=== PATIENT | female | born 1940 | race Caucasian/White ===

== ENCOUNTER 2019-07-24 10:36 | Emergency (ER) | payer MEDICARE ==
[2019-07-24] MEDS ORDERED: ONDANSETRON HCL INJ/PF 4 MG/2 ML SDV IV ONE ×2 (10:50→11:18)
--- NOTE | 2019-07-24 10:56 | ER Document Report ---
ED General - General Stated Complaint: Possible seizure Time Seen by Provider: 07/24/19 10:47 Primary Care Provider: TAQUERIA JAMESON PA [Primary Care Provider] - Follow up as needed Notes: 79-year-old woman brought into the emergency department by EMS. Apparently family heard a unusual noise in the adjacent room went and found her poorly res ponsive and apparently had fallen sustaining abrasion to the side of her face. Was question of a possible seizure, she is nonverbal on unresponsive to verbal stimuli. There is no known history of seizures, she has a past medical history of hypertension, anxiety, urinary incontinence, and atrial fibrillation. Apparently she was sitting in a recliner, family member noticed her shaking prior to EMS being called. EMS came and found her with a altered mental status and poorly responsive to verbal stimuli. In the emergency department she has had several episodes of vomiting, watery gastric content, no blood noted. Patient is able to respond to answering questions, able to tell me her name and moves all 4 extremities spontaneously. - Related Data Allergies/Adverse Reactions: No Known Allergies Allergy (Unverified 07/24/19 12:00) Past Medical History - Social History Smoking Status: Unknown if Ever Smoked Family History: Reviewed & Not Pertinent Review of Systems - Review of Systems Notes: Constitutional: Negative for fever. HENT: Negative for sore throat. Eyes: Negative for visual changes. Cardiovascular: Negative for chest pain. Respiratory: Negative for shortness of breath. Gastrointestinal: + Vomiting episodes Genitourinary: Negative for dysuria. Musculoskeletal: Negative for back pain. Skin: Negative for rash. Neurological: + Altered mental status, + shaking episode 10 point ROS negative except as marked above and in HPI. Physical Exam - Vital signs Vitals: BP Pulse Ox 162/91 H 96 07/24/19 10:46 07/24/19 10:46 - Notes Notes: PHYSICAL EXAMINATION: Physical Exam: General: Well-nourished, well-developed, 79-year-old woman mildly restless secondary to vomiting episodes. HEENT: NC/AT, pupils equal round and reactive to light, MM moist,nares clear, oropharynx clear, airway patent Neck: supple, no adenopathy, no masses. Good range of motion Lungs: clear, no wheezing, no rales no rhonchi CVS: Regular rate and rhythm no murmur gallop or rub Abdomen: Soft, active, nontender, no masses, no hepatosplenomegaly Ext: No edema, clubbing or cyanosis. Neuro: Alert and responsive, moving all 4 extremities on command, cranial nerves intact, no focal findings Skin: Intact no open lesions, no rash PSYCH: Normal mood, normal affect. Course - Re-evaluation Re-evalutation: 07/24/19 13:07 I discussed the patient with the hospitalist, , he notes that we have no neurology services and no ability to get an EEG before Thursday of next week. I have contacted [facility] and Dr. James has agreed to accept the patient in transfer. - Vital Signs Vital signs: Temp Pulse Resp BP Pulse Ox 98.6 F 56 L 20 143/81 H 98 07/24/19 14:33 07/24/19 11:10 07/24/19 15:01 07/24/19 15:01 07/24/19 15:01 - Laboratory Result Diagrams: 07/24/19 10:00 07/24/19 10:00 Laboratory results interpreted by me: 07/24/19 07/24/19 07/24/19 10:00 10:00 10:00 Hgb 11.8 L MCH 26.2 L RDW 16.5 H Carbonic Acid ABG pCO2 ABG pO2 ABG O2 Saturation Glucose 130 H POC Glucose AST 62 H NT-Pro-B Natriuret Pep 3300 H Urine Protein Urine Blood Urine Urobilinogen 07/24/19 07/24/19 07/24/19 11:12 11:19 11:30 Hgb MCH RDW Carbonic Acid 0.99 L ABG pCO2 32.8 L ABG pO2 61.5 L ABG O2 Saturation 92.7 L Glucose POC Glucose 127 H AST NT-Pro-B Natriuret Pep Urine Protein 100 H Urine Blood SMALL H Urine Urobilinogen 2.0 H I have reviewed laboratory data and used this information for the treatment decisions regarding the patient. - Diagnostic Test Radiology reviewed: Image reviewed, Reports reviewed - Chest x-ray with cardiomegaly, no CHF CT head noncontrast: Chronic intracranial changes with small vessel disease chronic appearing paranasal sinus disease CT the abdomen and pelvis with IV contrast large hiatal hernia with the majority of the stomach sitting in the hiatal hernia, colitis involving the ascending and transverse colon with thickening in the mucosal wall diffusely, infectious versus inflammatory. - EKG Interpretation by [place] EKG shows normal: Sinus rhythm - Sinus rhythm, rate of 63, probable left atrial abnormality, borderline prolonged QT interval, no acute ST-T wave abnormalities noted. Critical Care Note - Critical Care Note Total time excluding time spent on procedures (mins): 60 - Critical care time spent obtaining history from patient or surrogate, discussions with consultants, development of treatment plan with patient or surrogate, evaluation of patient's response to treatment, examination of patient, ordering and performing treatments and interventions, ordering and review of laboratory studies, re-evaluation of patient's condition, ordering and review of radiographic studies and review of old charts Discharge - Discharge Clinical Impression: Episode of shaking, Cardiomegaly, History of atrial fibrillation, Large hiatal hernia, Colitis Altered mental status Qualifiers: Altered mental status type: unspecified Qualified Code(s): R41.82 - Altered mental status, unspecified Hypertension Qualifiers: Hypertension type: unspecified Qualified Code(s): I10 - Essential (primary) hypertension Vomiting Qualifiers: Vomiting type: unspecified Vomiting Intractability: unspecified Nausea presence: unspecified Qualified Code(s): R11.10 - Vomiting, unspecified Condition: Good Disposition: [facility] Referrals: TAQUERIA JAMESON PA [Primary Care Provider] - Follow up as needed
[2019-07-24 10:57] LABS: ABSOLUTE BASOPHILS # (AUTO) 0.1 10^3/uL (0.0-0.2); ABSOLUTE EOSINOPHILS # (AUTO) 0.2 10^3/uL (0.0-0.6); ABSOLUTE LYMPHOCYTES (AUTO) 2.6 10^3/uL (0.5-4.7); ABSOLUTE MONOCYTES (AUTO) 0.7 10^3/uL (0.1-1.4); ABSOLUTE NEUT (AUTO) 4.3 10^3/uL (1.7-8.2); BASOPHILS % (AUTO) 0.8 % (0-2); EOSINOPHILS % (AUTO) 2.6 % (0-6); HEMATOCRIT 36.3 % (36.0-47.0); HEMOGLOBIN 11.8 g/dL (12.0-15.5); LYMPHOCYTES % (AUTO) 32.8 % (13-45); MEAN CORPUSCULAR HEMOGLOBIN 26.2 pg (27.0-33.4); MEAN CORPUSCULAR HGB CONC 32.4 g/dL (32.0-36.0); MEAN CORPUSCULAR VOLUME 81 fl (80-97); MONOCYTES % (AUTO) 9.1 % (3-13); PLATELET COUNT 255 10^3/uL (150-450); RED BLOOD COUNT 4.49 10^6/uL (3.72-5.28); RED CELL DISTRIBUTION WIDTH 16.5 % (11.5-14.0); SEGMENTED NEUTROPHILS % (AUTO) 54.7 % (42-78); TOTAL CELLS COUNTED % (AUTO) 100 %; WHITE BLOOD COUNT 7.9 10^3/uL (4.0-10.5)
[2019-07-24 11:13] LABS: ALBUMIN 3.9 g/dL (3.5-5.0); ALKALINE PHOSPHATASE 110 U/L (38-126); ANION GAP 11 (5-19); ASPARTATE AMINO TRANSFERASE 62 U/L (14-36); BILIRUBIN,TOTAL 0.6 mg/dL (0.2-1.3); BLOOD UREA NITROGEN 15 mg/dL (7-20); CALCIUM 8.8 mg/dL (8.4-10.2); CARBON DIOXIDE 23 mmol/L (22-30); CHLORIDE 104 mmol/L (98-107); GLUCOSE 130 mg/dL (75-110); POTASSIUM 3.8 mmol/L (3.6-5.0); TOTAL PROTEIN 6.7 g/dL (6.3-8.2)
[2019-07-24 11:15] LABS: ALCOHOL < 10 mg/dL (NONE DETECTED)
[2019-07-24] MEDS ORDERED: ONDANSETRON HCL INJ/PF 4 MG/2 ML SDV ONE (11:18)
[2019-07-24] MEDS ORDERED: PROCHLORPERAZINE EDISYLATE INJ 10 MG/2 ML VIAL IM ONE (11:22)
[2019-07-24] MEDS ORDERED: PROCHLORPERAZINE EDISYLATE INJ 10 MG/2 ML VIAL ONE (11:22)
[2019-07-24 11:25] LABS: ARTERIAL BLOOD BASE EXCESS -1.5 mmol/L; ARTERIAL BLOOD FIO2 ROOM AIR; ARTERIAL BLOOD H2CO3 0.99 mmol/L (1.05-1.35); ARTERIAL BLOOD O2 SATURATION 92.7 % (94-98); ARTERIAL BLOOD PCO2 32.8 mmHg (35-45); ARTERIAL BLOOD PH 7.44 (7.35-7.45); ARTERIAL BLOOD PO2 61.5 mmHg (80-100)
--- NOTE | 2019-07-24 11:30 | RADIOLOGY REPORT (SQ) ---
EXAM DESCRIPTION: CT HEAD WITHOUT IMAGES COMPLETED DATE/TIME: 07/24/2019 11:11 am REASON FOR STUDY: AMS COMPARISON: None. TECHNIQUE: Axial images acquired through the brain without intravenous contrast. Images reviewed wi th bone, brain and subdural windows. Images stored on PACS. All CT scanners at this facility use dose modulation, iterative reconstruction, and/or weight based d osing when appropriate to reduce radiation dose to as low as reasonably achievable (ALARA). [facility]: Dose Right [facility]: [employer] [facility]: Dose Right [facility]: Teradose 4D [facility]: [employer] RADIATION DOSE: CT Rad equipment meets quality standard of care and radiation dose reduction techniq ues were employed. CTDIvol: 53.2 mGy. DLP: 1070 mGy-cm. mGy. LIMITATIONS: None. FINDINGS: VENTRICLES: Normal size and contour. CEREBRUM: Patchy deep periventricular low density particularly along the posterior ventricles, right greater than left. Consistent with small vessel disease. Chronic periventricular calcifications in the frontal regions likely related to old infection. CEREBELLUM: No mass effect. No hemorrhage. No alteration of density. No evidence for acute infarct ion. EXTRAAXIAL SPACES: No fluid collections. ORBITS AND GLOBE: Symmetrical contour of the globes. CALVARIUM: No depressed skull fracture. PARANASAL SINUSES: Complete opacification left maxillary sinus is likely chronic. Patchy opacificati on throughout the ethmoid air cells and right sphenoid sinus as well. SOFT TISSUES: No hematoma. IMPRESSION: 1. Chronic intracranial changes, small vessel disease. 2. Chronic appearing paranasal sinus disease. TECHNICAL DOCUMENTATION: JOB ID: [id number] [address] [id number]: Final reports with documentation of one or more dose reduction techniques (e.g., Automate d exposure control, adjustment of the mA and/or kV according to patient size, use of iterative recons truction technique) 2010 [employer]- All Rights Reserved Reading location - IP/workstation name: [email or web address]
--- NOTE | 2019-07-24 11:32 | RADIOLOGY REPORT (SQ) ---
EXAM DESCRIPTION: CHEST SINGLE VIEW IMAGES COMPLETED DATE/TIME: 07/24/2019 11:03 am REASON FOR STUDY: shortness of breath COMPARISON: None. NUMBER OF VIEWS: One view. TECHNIQUE: Single frontal radiographic view of the chest acquired. LIMITATIONS: None. FINDINGS: LUNGS AND PLEURA: No opacities, masses or pneumothorax. No pleural effusion. MEDIASTINUM AND HILAR STRUCTURES: No masses. Contour normal. HEART AND VASCULAR STRUCTURES: Heart enlarged without failure. Normal vasculature. BONES: Osteopenic. HARDWARE: None in the chest. OTHER: No other significant finding. IMPRESSION: HEART ENLARGED WITHOUT FAILURE. NO OTHER SIGNIFICANT RADIOGRAPHIC FINDING IN THE CHEST. TECHNICAL DOCUMENTATION: JOB ID: [id number] 2010 [employer]- All Rights Reserved Reading location - IP/workstation name: [email or web address]
[2019-07-24 11:52] LABS: APPEARANCE,URINE SLIGHTLY-CLOUDY; BILIRUBIN,URINE NEGATIVE (NEGATIVE); COLOR,URINE YELLOW; GLUCOSE, URINE NEGATIVE (NEGATIVE); KETONES,URINE NEGATIVE (NEGATIVE); LEUKOCYTE ESTERASE,URINE NEGATIVE (NEGATIVE); NITRITE,URINE NEGATIVE (NEGATIVE); PROTEIN,URINE 100 mg/dL (NEGATIVE); URINE SPECIFIC GRAVITY 1.018
[2019-07-24 12:06] LABS: CREATINE KINASE MB 0.73 ng/mL (<4.55); NT PRO BNP 3300 pg/mL (<450); TROPONIN I < 0.012 ng/mL
[2019-07-24 12:07] LABS: URINE AMPHETAMINES SCREEN NEGATIVE; URINE BARBITURATES SCREEN NEGATIVE; URINE BENZODIAZEPINES SCREEN NEGATIVE; URINE COCAINE SCREEN NEGATIVE; URINE MARIJUANA (THC) SCREEN NEGATIVE; URINE METHADONE SCREEN NEGATIVE; URINE PHENCYCLIDINE SCREEN NEGATIVE
--- NOTE | 2019-07-24 12:18 | EKG REPORT ---
SEVERITY:- BORDERLINE ECG - SINUS RHYTHM PROBABLE LEFT ATRIAL ABNORMALITY BORDERLINE PROLONGED QT INTERVAL : Confirmed by: Karen Ball MD 24-Jul-2019 12:18:21
[2019-07-24] MEDS ORDERED: PROCHLORPERAZINE EDISYLATE INJ 10 MG/2 ML VIAL IV ONE (12:28)
--- NOTE | 2019-07-24 13:13 | RADIOLOGY REPORT (SQ) ---
EXAM DESCRIPTION: CT ABD/PELVIS WITH IV ONLY IMAGES COMPLETED DATE/TIME: 07/24/2019 12:55 pm REASON FOR STUDY: vomiting COMPARISON: None. TECHNIQUE: CT scan of the abdomen and pelvis performed using helical scanning technique with dynamic intravenous contrast injection. No oral contrast. Images reviewed with lung, soft tissue, and bone windows. Reconstructed coronal and sagittal MPR images reviewed. Delayed images for evaluation of the urinary system also acquired. All images stored on PACS. All CT scanners at this facility use dose modulation, iterative reconstruction, and/or weight based d osing when appropriate to reduce radiation dose to as low as reasonably achievable (ALARA). [facility]: Dose Right [facility]: CareDose [facility]: Dose Right [facility]: Teradose 4D [facility]: [employer] CONTRAST TYPE AND DOSE: contrast/concentration: Isovue 350.00 mg/ml; Total Contrast Delivered: 73.0 ml; Total Saline Delivered: 66.0 ml RENAL FUNCTION: BUN 15 creatinine 0.73. RADIATION DOSE: CT Rad equipment meets quality standard of care and radiation dose reduction techniq ues were employed. CTDIvol: 11.7 - 16.3 mGy. DLP: 1515 mGy-cm.. LIMITATIONS: None. FINDINGS: LOWER CHEST: Small pleural effusions. No nodules or infiltrates. LIVER: Normal size. No masses. No dilated ducts. SPLEEN: Normal size. Calcified granulomas. No focal lesions. PANCREAS: No masses. No significant calcifications. No adjacent inflammation or peripancreatic fluid collections. Pancreatic duct not dilated. GALLBLADDER: Surgically absent. ADRENAL GLANDS: No significant masses or asymmetry. RIGHT KIDNEY AND URETER: No solid masses. No significant calcifications. No hydronephrosis or hyd roureter. LEFT KIDNEY AND URETER: No solid masses. No significant calcifications. No hydronephrosis or hydr oureter. AORTA AND VESSELS: No aneurysm. No dissection. Renal arteries, SMA, celiac without stenosis. RETROPERITONEUM: No retroperitoneal adenopathy, hemorrhage or masses. BOWEL AND PERITONEAL CAVITY: Large hiatal hernia, containing most of the stomach. Diffuse edema invo lving the wall of the ascending and transverse colon. No free fluid or peritoneal masses. APPENDIX: Normal. PELVIS: No mass. No free fluid. Normal bladder. ABDOMINAL WALL: No masses. No hernias. BONES: No significant or acute findings. OTHER: No other significant finding. IMPRESSION: 1. LARGE HIATAL HERNIA CONTAINING MOST OF THE STOMACH. 2. DIFFUSE BOWEL WALL EDEMA INVOLVING THE ASCENDING AND TRANSVERSE COLON. LIKELY DUE TO COLITIS, POS SIBLY INFLAMMATORY OR INFECTIOUS. 3. SMALL PLEURAL EFFUSIONS. 4. NO OTHER SIGNIFICANT OR ACUTE FINDING IN THE ABDOMEN OR PELVIS ON CT SCAN WITH IV CONTRAST. TECHNICAL DOCUMENTATION: JOB ID: [id number] Quality ID # [id number]: Final reports with documentation of one or more dose reduction techniques (e.g., Au tomated exposure control, adjustment of the mA and/or kV according to patient size, use of iterative reconstruction technique) 2010 [employer]- All Rights Reserved Reading location - IP/workstation name: [email or web address]
[2019-07-24] MEDS ORDERED: PANTOPRAZOLE SODIUM 40 MG VIAL IV ONE (13:24)
[2019-07-24] MEDS ORDERED: PROMETHAZINE HCL INJ 25 MG/1 ML VIAL IV ONE (13:25)
[2019-07-24] MEDS ORDERED: DILTIAZEM HCL INJ 25 MG/5 ML VIAL IV ONE (13:26)
[2019-07-24] MEDS ORDERED: METOCLOPRAMIDE HCL INJ/PF 10 MG/2 ML SDV IV ONE (13:32)
[2019-07-24] MEDS ORDERED: DEXAMETHASONE SOD PHOS INJ 10 MG/1 ML VIAL IV ONE (13:32)
[2019-07-24] MEDS ORDERED: PIPERACILLIN/TAZOBACTAM 3.375 GM VIAL IV ONE (13:33)
[2019-07-24] MEDS ORDERED: NORMAL SALINE 1000 ML 1,000 ML IV PRN (13:53)
[2019-07-24] MEDS ORDERED: METOPROLOL TARTRATE PF/INJ 5 MG/5 ML SDV IV ONE (14:01)
[2019-07-24 15:14] VITALS: BP 143/81
--- NOTE | 2019-07-24 15:19 | ER Document Report ---
Doctor's Note Notes: 07/24/19 15:18 Transport crew is at bedside, patient remains disoriented, does open her eyes and attempt to talk to me, unable to form any questions. Remains stable for transport to tertiary facility with neurology. No seizure activity here.
== END 2019-07-24 15:41 | disposition short-term general hospital (02) ==
LOC: ER 10:36
DX: R41.82 Altered mental status, unspecified (principal); R25.1 Tremor, unspecified; I51.7 Cardiomegaly; K44.9 Diaphragmatic hernia without obstruction or gangrene; K52.9 Noninfective gastroenteritis and colitis, unspecified; R11.10 Vomiting, unspecified; S00.81XA Abrasion of other part of head, initial encounter; X58.XXXA Exposure to other specified factors, initial encounter; I10 Essential (primary) hypertension; F41.9 Anxiety disorder, unspecified; I48.91 Unspecified atrial fibrillation
CPT/HCPCS: 93005; 99291; 96372; 96361; 51701; 96375; 96365; 36415; 82553; 82962; 80307 ×2; 82803; 82550; 83735; 85025; 80053; 81001; 84484; 83880; 71045; 70450; 74177; 93010; J3490 ×2; J2765; C9113; J0780; J2550; J2405; J7030; J1100; J2543